=== PATIENT | male | born 1975 | race Caucasian/White ===

== ENCOUNTER → 2018-10-31 | Outpatient (CLI) | payer OTHER ==
[~2018-10-31] MED LIST: AMOCLA875 PO; AZIT250 PO; CYCL10 PO; PRED20 PO; Ultram50 MG PO
== END | disposition home or self-care (01) ==
LOC: LAB SHORT 18:26 → LAB 18:26
DX: S60.453A Superficial foreign body of left middle finger, initial encounter (principal)
CPT/HCPCS: 87070; 87075; 87077; 87147; 87186; 87205

== ENCOUNTER 2022-08-21 09:20 | Day surgery (SDC) | payer OTHER ==
[2022-08-21] VITALS (15 sets, daily range): BP systolic 85–104; BP diastolic 52–79
[~2022-08-21] VITALS: Ht 180.3 cm; Wt 79.3 kg
[~2022-08-21 09:20] MED LIST changes: +GABA400 PO; +META800
--- NOTE | 2022-08-21 10:02 | NUR ---
Ambulatory in Day Surgery. History, Chart, Medications and Allergies reviewed before start of procedure. Lungs clear T/O to Auscultation. Patient confirms NPO status and agrees with scheduled surgery. Pre-Op teaching done. Pt verbalizes understanding. Patient States Post-Procedure ride home has been arranged.
--- NOTE | 2022-08-21 10:48 | NUR ---
08/21/22 1048 Nithin Brian HISTORY, CHART, MEDICATIONS AND ALLERGIES REVIEWED BEFORE START OF PROCEDURE. PATIENT CONFIRMS NPO STATUS AND AGREES WITH SCHEDULED PROCEDURE. 3-LEAD EKG REVIEWED WITH PHYSICIAN PRIOR TO START OF PROCEDURE. MONITOR INTACT WITH CONTINUOUS PULSE OXIMETRY,CAPNOGRAPHY, 3-LEAD EKG, INTERMITTENT BP. SUPPLEMENTAL O2 TO BE TITRATED THROUGHOUT PROCEDURE TO MAINTAIN O2 SATURATION ABOVE 90%. PATIENT DETERMINED TO BE ASA APPROPRIATE FOR PROPOFOL SEDATION PRIOR TO START OF PROCEDURE BY
--- NOTE | 2022-08-21 11:04 | NUR ---
VSS. PT ON ROOM AIR. AND DR SHERMAN AT BEDSIDE. PT SITTING UP IN BED, REPORT RECIEVED
--- NOTE | 2022-08-21 11:20 | NUR ---
Patient up to Ambulate independently. Gait steady. Discharge instructions reviewed with patient AND Patient verbalizes understanding. Copy given to patient to take home. Discharged via wheelchair to private car for ride home.
== END 2022-08-21 11:24 | disposition home or self-care (01) ==
LOC: ORSCMMR 09:20 → ORD 10:00 → ORSCMMR 10:00
PROVIDERS: Internal Medicine Gastroenterology
PROC: 0DBN8ZX Excision of Sigmoid Colon, Via Natural or Artificial Opening Endoscopic, Diagnostic (ICD-10-PCS; principal; 2022-08-21 10:00)
DX: Z12.11 Encounter for screening for malignant neoplasm of colon (principal); C18.7 Malignant neoplasm of sigmoid colon; Z79.899 Other long term (current) drug therapy
CPT/HCPCS: 88305; J2250; J2704; J7120

== ENCOUNTER 2022-09-20 09:38 | Inpatient (IN) | payer OTHER | END 2022-09-22 09:15 | disposition home or self-care (01) | DRG 331 | LOC: SURS 09:38 | PROVIDERS: ADMIT Surgery | PROC: 0DTG4ZZ Resection of Left Large Intestine, Percutaneous Endoscopic Approach (ICD-10-PCS; principal; 2022-09-20) | PROC: 8E0W4CZ Robotic Assisted Procedure of Trunk Region, Percutaneous Endoscopic Approach (ICD-10-PCS; 2022-09-20) | PROC: 0DBP8ZX Excision of Rectum, Via Natural or Artificial Opening Endoscopic, Diagnostic (ICD-10-PCS; 2022-09-20) | DX: C18.7 Malignant neoplasm of sigmoid colon (principal); R63.4 Abnormal weight loss; M54.9 Dorsalgia, unspecified; G89.29 Other chronic pain; K66.0 Peritoneal adhesions (postprocedural) (postinfection); K62.1 Rectal polyp; Z98.890 Other specified postprocedural states; Z79.899 Other long term (current) drug therapy; Z91.040 Latex allergy status; Z88.5 Allergy status to narcotic agent; Z79.891 Long term (current) use of opiate analgesic; Z91.048 Other nonmedicinal substance allergy status; Z68.24 Body mass index [BMI] 24.0-24.9, adult; Z87.891 Personal history of nicotine dependence ==

== ENCOUNTER 2023-01-05 22:54 | Emergency (ER) | payer OTHER ==
[~2023-01-05] VITALS: Ht 180.3 cm; Wt 83.9 kg
[~2023-01-05 22:54] MED LIST changes: +DOCU100 PO; +ENOX40I SC; +METR500; +NEOM500 PO; +OXYC5 PO
[2023-01-05 22:59] VITALS: BP 139/90
== END 2023-01-06 01:04 | disposition home or self-care (01) ==
LOC: ER 22:54
DX: S91.311A Laceration without foreign body, right foot, initial encounter (principal); S81.811A Laceration without foreign body, right lower leg, initial encounter; W25.XXXA Contact with sharp glass, initial encounter; Z88.5 Allergy status to narcotic agent; Z91.040 Latex allergy status; Z79.899 Other long term (current) drug therapy
CPT/HCPCS: 12001; 99282-25

== ENCOUNTER → 2024-02-19 | Outpatient (CLI) | payer OTHER ==
[~2024-02-19] MED LIST changes: +Hydrocodone Bita5 GM
[2024-02-22 19:29] LABS: 11-NOR-9-CARBOXY-THC,URN,QUANT >500 ng/mL
== END ==
LOC: LAB SHORT 09:30 → LAB 09:30
PROVIDERS: Nurse Practitioner Family
DX: G89.4 Chronic pain syndrome (principal)
CPT/HCPCS: G0480